=== PATIENT | female | born 1990 | race Two or more races ===

== ENCOUNTER → 2020-06-08 | Outpatient (CLI) | payer OTHER | END | disposition home or self-care (01) | LOC: PRENATAL 13:30 | PROVIDERS: ATTEND Obstetrics & Gynecology Maternal & Fetal Medicine | DX: O34.211 Maternal care for low transverse scar from previous cesarean delivery (principal); O36.80X1 Pregnancy with inconclusive fetal viability, fetus 1; Z36.89 Encounter for other specified antenatal screening; Z3A.13 13 weeks gestation of pregnancy ==

== ENCOUNTER → 2020-07-27 | Outpatient (CLI) | payer OTHER | END | disposition home or self-care (01) | LOC: PRENATAL 11:00 | PROVIDERS: ATTEND Obstetrics & Gynecology Maternal & Fetal Medicine | DX: O35.0XX1 Maternal care for (suspected) central nervous system malformation in fetus, fetus 1 (principal); O35.3XX1 Maternal care for (suspected) damage to fetus from viral disease in mother, fetus 1; O34.211 Maternal care for low transverse scar from previous cesarean delivery; O98.512 Other viral diseases complicating pregnancy, second trimester; Z36.89 Encounter for other specified antenatal screening; Z3A.20 20 weeks gestation of pregnancy ==

== ENCOUNTER 2020-12-03 08:00 | Inpatient (IN) | payer OTHER ==
[~2020-12-03] VITALS: Ht 152.4 cm; Wt 83.0 kg
[2020-12-03] MEDS ORDERED: PRENATAL + DHA1 EAC1 PO (12:02)
[2020-12-06] MEDS ORDERED: DOCUSATE SODIU100 MG PO (07:23)
[2020-12-06] MEDS ORDERED: OXYC1TAB9 PO (07:23)
[2020-12-06] MEDS ORDERED: SIMETHICONE125 M1 PO (07:23)
[2020-12-06] MEDS ORDERED: PREPLUS CA-FE1 EACH PO (07:23)
== END 2020-12-07 10:48 | disposition home or self-care (01) | DRG 785 ==
LOC: LDR 14:42 → OB/GYN 20:16
PROVIDERS: ADMIT Specialist; ATTEND Specialist
PROC: 0UB70ZZ Excision of Bilateral Fallopian Tubes, Open Approach (ICD-10-PCS; 2020-12-03)
PROC: 4A1HXFZ Monitoring of Products of Conception, Cardiac Rhythm, External Approach (ICD-10-PCS; 2020-12-03)
PROC: 10D00Z1 Extraction of Products of Conception, Low, Open Approach (ICD-10-PCS; principal; 2020-12-03 14:00)
DX: O34.211 Maternal care for low transverse scar from previous cesarean delivery (principal); Z30.2 Encounter for sterilization; Z37.0 Single live birth; Z3A.28 28 weeks gestation of pregnancy; Z20.822 Contact with and (suspected) exposure to COVID-19